=== PATIENT | male | born 1985 | race African-American/Black ===

== ENCOUNTER 2021-04-26 23:26 | Emergency (ER) | payer MEDICAID, SELFPAY ==
[~2021-04-26] VITALS: Ht 172.7 cm; Wt 76.7 kg
[2021-04-26 23:27] VITALS: BP 125/86
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
[2021-04-27] MEDS ORDERED: KETOROLAC 60MG 2ML VIAL IM ONE (06:15)
[2021-04-27] MEDS ORDERED: NAPR-885 PO (06:17)
== END 2021-04-27 06:42 | disposition home or self-care (01) ==
LOC: M ED 23:26
DX: Z04.1 Encounter for examination and observation following transport accident (principal); M54.2 Cervicalgia; M54.50 Low back pain, unspecified; M25.552 Pain in left hip; F17.200 Nicotine dependence, unspecified, uncomplicated
CPT/HCPCS: 70450; 72125; 96372; 99282; J1885